=== PATIENT | male | born 1975 | race Caucasian/White ===

== ENCOUNTER → 2024-11-04 | Outpatient (CLI) | payer OTHER, SELFPAY ==
--- NOTE | 2024-11-04 15:17 | RAD_ITS ---
PROCEDURE: LUMBAR SPINE 2 OR 3 VIEWS 11/04/2024 REASON FOR EXAM: PAIN TECHNIQUE: LUMBAR SPINE 2 OR 3 VIEWS COMPARISON: None FINDINGS: Normal lumbar lordosis. There is no substantial scoliosis. T12-L1: Normal disc height. Normal endplates. Normal alignment of the vertebrae. L1-2: Normal disc height. Normal endplates. Normal alignment of the vertebrae. L2-3: Normal disc height. Normal endplates. Normal alignment of the vertebrae. L3-4: Normal disc height. Normal endplates. Normal alignment of the vertebrae. L4-5: Normal disc height. Normal endplates. Normal alignment of the vertebrae. L5-S1: Normal disc height. Normal endplates. Normal alignment of the vertebrae. The soft tissue structures are unremarkable. RAD/Lumbar Spine 2 or 3 Views IMPRESSION: Normal x-ray examination of the lumbar spine. [facility]
== END | disposition home or self-care (01) ==
LOC: MTRAD 15:16
PROVIDERS: PCP Family Medicine; Referring Provider Family Medicine; Visit Provider Family Medicine
DX: M54.16 Radiculopathy, lumbar region (principal)
CPT/HCPCS: 72100

== ENCOUNTER → 2025-01-21 | Outpatient (CLI) | payer OTHER, SELFPAY ==
[2025-01-21 15:06] LABS: Mucous, Urine 0 SEEN /hpf (<or=2+)
--- OUTSIDE RECORDS SUMMARY | 2025-01-21 16:40 | XMS RPT_ITS | CCD ---
Author Organization [facility] Care Team Providers Care Irrigation Teacher Name Role Phone Goran RAY, Dr. Torrey Walters Primary Care Provider Goran RAY, Dr. Torrey Walters Attending Provider [phone] Goran RAY, Dr. Torrey Walters Referring Provider [phone] Torrey Zimmer Referring Unavailable Torrey Zimmer Attending Unavailable Torrey Zimmer Primary Care Unavailable Medications Current Medications Medication Drug Class(es) Dates Sig (Normalized) Sig (Original) acyclovir 800 mg oral tablet (1 source) Herpesvirus Nucleoside Analog DNA Polymerase Inhibitor, Herpes Simplex Virus Nucleoside Analog DNA Polymerase Inhibitor, Herpes Zoster Virus Nucleoside Analog DNA Polymerase Inhibitor Start: 05-24-2014 take 1 tablet by mouth five times daily Acyclovir 800 MG tablet Active 800 mg PO 5 TIMES DAILY 35 0 May 24, 2014 1:00am cephalexin 500 mg oral capsule (1 source) Cephalosporin Antibacterial Start: 05-24-2014 take 1 capsule by mouth every six hours Cephalexin (Keflex) 500 MG capsule Active 500 mg PO EVERY 6 HOURS FOR 7 DAYS 28 0 May 24, 2014 1:00am Problems Problem Classification Problem Date Documented Da te Episodic/Chronic Spondylosis; intervertebral disc disorders; other back problems (1 source) Radiculopathy, lumbar region; Translations: [Radiculopathy, lumbar region] Onset: 11-10-2024 Episodic Results Test Name Value Interpretation Reference Range Facil ity Lumbar Spine 2 or 3 Viewson 11-04-2024 Lumbar Spine 2 or 3 Views [facility] [address] [place] [address] Lumbar Spine 2 or 3 Views MR#: [id number] Acct: [id number] Name: SHELBY SAMPSON Rep #: [id number] : 1975 M 49 From: Luis A galvez MD PCP: Dr. Torrey Zimmer MD Status: REG CLI Study: Lumbar Spine 2 or 3 Views Date of Exam: Exam# [id number] Ordering Dr: Torrey Zimmer MD PROCEDURE: LUMBAR SPINE 2 OR 3 VIEWS 11/04/2024 REASON FOR EXAM: PAIN TECHNIQUE: LUMBAR SPINE 2 OR 3 VIEWS COMPARISON: None FINDINGS: Normal lumbar lordosis. There is no substantial scoliosis. T12-L1: Normal disc height. Normal endplates. Normal alignment of the vertebrae. L1-2: Normal disc height. Normal endplates. Normal alignment of the vertebrae. L2-3: Normal disc height. Normal endplates. Normal alignment of the vertebrae. L3-4: Normal disc height. Normal endplates. Normal alignment of the vertebrae. L4-5: Normal disc height. Normal endplates. Normal alignment of the vertebrae. L5-S1: Normal disc height. Normal endplates. Normal alignment of the vertebrae. The soft tissue structures are unremarkable. RAD/Lumbar Spine 2 or 3 Views IMPRESSION: Normal x-ray examination of the lumbar spine. Reading Location: [place] [address] CC: Dr. 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 Torrey Zimmer MD Work Phone: [facility] [place] Start: 11-04-2024 End: 11-04-[address] Torrey Zimmer MD [facility] [place] Work Phone: Start: 11-04-2024 End: 11-04-2024 ambulatory Torrey Zimmer Facility:[facility] Procedures Date Procedure Procedure Detail Performing Clinician Start: 11-04-2024 X-ray of lumbar spin e, two or three views Dr. Torrey Zimmer MD Work Phone: Payers Date Payer Category Payer Private Health Insurance [id number] 2024 Self-pay Unknown [id number] Unknown [id number] Social History Date Type Detail Facility Start: 05-24-2014 Tobacco smoking status NHIS Tobacco smoking consumption unknown (finding) [facility] Start: 1975 Sex Assigned At Male [facility] Radiology Diagnostic study note 11-05-2024 Note Date & Type Note Facility 11-05-2024 Radiology Diagnostic study note [facility] Imaging Services [address] [place], [place] [address] Lumbar Spine 2 or 3 Views MR#: [id number] Acct: [id number] Name: SHELBY SAMPSON Rep #: [id number] : 1975 M 49 From: Ruddy Gregg MD PCP: Dr. Torrey Zimmer MD Status: RE G CLI Study:Lumbar Spine 2 or 3 Views Date of Exam: 11/04/24 Exam# [id number] Ordering Dr: Torrey Zimmer MD PROCEDURE: LUMBAR SPINE 2 OR 3 VIEWS 11/04/2024 REASON FOR EXAM: PAIN TECHNIQUE: LUMBAR SPINE 2 OR 3 VIEWS COMPARISON: None FINDINGS: Normal lumbar lordosis. There is no substantial scoliosis. T12-L1: Normal disc height. Normal endplates. Normal alignment of the vertebrae. L1-2: Normal disc height. Normal endplates. Normal alignment of the vertebrae. L2-3: Normal disc height. Normal endplates. Normal alignment of the vertebrae. L3-4: Normal disc height. Normal endplates. Normal alignment of the vertebrae. L4-5: Normal disc height. Normal endplates. Normal alignment of the vertebrae. L5-S1: Normal disc height. Normal endplates. Normal alignment of the vertebrae. The soft tissue structures are unremarkable. RAD/Lumbar Spine 2 or 3 Views IMPRESSION: Normal x-ray examination of the lumbar spine. Reading Location: [place] [address] CC: Dr. Torrey Zimmer MD ~ Wedding [employer] Driver: Signed [facility] Evaluation note Note Date & Type Note Facility Evaluation note No assessment information availa ble [facility] Work Phone: Reason for referral (narrative) Note Date & Type Note Facility Reason for referral (narrative) No reason for referral information available [facility] Work Phone: Chief Complaint and Reason for Visit Chief Complaint Admit Date LUMBAR 2-3 VIEWS November 04, 2024 3:09p m Summary Purpose Family History No Family History Records Found Advance Directives No Advanced Directives Records Found Additional Source Comments Care Teams (unrecognized sec tion and content) Team Status: Active Member Role/Relationship Status Dates No Primary Care Physician Family Provider Active Dr. Torrey Zimmer MD Primary Care Provider Active Team Status: Inactive Member Role/Relationship Status Dates Dr. Torrey Zimmer MD Primary Care Provider Active Start: November 04, 2024 End: November 04, 2024 Dr. Torrey Zimmer MD Attending Provider Active Start: November 04, 2024 End: November 04, 2024 Dr. Torrey Zimmer MD Referring Provider Active Start: November 04, 2024 End: November 04, 2024 Goals (unrecognized section and content) Goals may be documented in a n alternate section (unrecognized sect ion and content) No Status Records Found INFORMATION SOURCE (unrecogn ized section and content) DATE CREATED AUTHOR 11/14/2024 [facility] FOR RECORDS PERTAINING TO PATIENTS WHO ARE OR HAVE BEEN ENROLLED IN A CHEMICAL DEPENDENCY/SUBSTANCEABUSE PROGRAM, SOME INFORMATION MAY BE OMITTED. This clinical summary was aggregated from multiple sources. Caution should be exercised in using it in the provision of clinical care. This summary normalizes information from multiple sources, and as a consequence, information in this document may materially change the coding, format and clinical context of patient data. In addition, data may be omitted in some cases. CLINICAL DECISIONS SHOULD BE BASED ON THE PRIMARY CLINICAL RECORDS. [employer] provides no warranty or guarantee of the accuracy or completeness of information in this document.
[2025-01-21 17:50] LABS: Color, Urine Straw (Yellow); Glucose, Dipstick Normal (Normal); Ketone-Dipstick Negative (Negative); Leukocyte Esterase-Dipstick Negative /ul (Negative); Nitrite-Dipstick Negative (Negative); Occult Blood-Urine Negative /ul (Negative); Protein-Dipstick Negative (Negative); Specific Gravity, Urine 1.010 (1.002-1.030); Urine Bilirubin Dipstick Negative (Negative)
[2025-01-21 17:58] LABS: Hematocrit 42.3 % (40-54); Hemoglobin 14.6 g/dL (13.0-16.5); Immature Granulocytes Count 0.000 X10^3/uL (0.0-0.0); Mean Corp Hgb Conc 34.5 g/dL (32-36); Mean Corpuscular Volume 89.1 fL (80-94); Mean Platelet Vol. 9.7 fl (6.2-12.0); NRBC Flagged by Analyzer 0 % (0-5); Platelet Count 244 K/mm3 (150-450); RBC Distribution Width CV 12.4 % (11.6-14.6); RBC Distribution Width SD 40.8 fl (35.1-43.9); Red Blood Count 4.75 M/mm3 (4.6-6.2); White Blood Count 3.9 K/mm3 (4.4-11.0)
[2025-01-21 18:10] LABS: AST(SGOT) 26 U/L (<=37); Alanine Aminotransfer ALT/SGPT 29 U/L (<=46); Albumin, Serum 4.3 g/dL (3.5-5.0); Alkaline Phosphatase 44 U/L (40-129); Anion Gap 13 (5-15); BUN 10 mg/dL (4-19); BUN/Creat Ratio 11.9 RATIO (10-20); Calcium,Total 8.8 mg/dL (7.6-11.0); Carbon Dioxide 25.3 mmol/L (21.0-32.0); Chloride 102 mmol/L (98-108); Cholesterol 258 mg/dL (<=200); Globulin 2.5 g/dL (2.2-4.2); Glucose 89 mg/dL (70-99); Low Density Lipoprotein Calc. 163 mg/dL; Magnesium 2.3 mg/dL (1.5-2.2); PSA,Total - Annual Screen 5.69 ng/mL (0.02-4.00); Potassium 3.8 mmol/L (3.3-5.1); Triglycerides 76 mg/dL; Very Low Density Lipoprotein 15 mg/dL (5-40); cholesterol:hdl ratio screen 3.25
[2025-01-21 18:34] LABS: Red Blood Cells-Urine 0-5 SEEN /hpf (0-5); Squamous Epithelial Cells - UA 0-5 SEEN /hpf (0-5)
== END | disposition home or self-care (01) ==
LOC: MFPLAB 15:03
PROVIDERS: PCP Family Medicine; Visit Provider Family Medicine
DX: Z12.5 Encounter for screening for malignant neoplasm of prostate (principal); I10 Essential (primary) hypertension
CPT/HCPCS: 80053; 80061; 81001; 83735; 84153; 84443; 85025; G0103

== ENCOUNTER → 2025-03-02 | Outpatient (CLI) | payer OTHER, SELFPAY ==
--- NOTE | 2025-03-02 13:13 | MRI_ITS ---
EXAM: PELVIS W/WO CONTRAST 03/02/2025 CLINICAL HISTORY: ELEVATED PROSTATE. TECHNIQUE: Procedure Code: [id number] Modality: MR Procedure: PELVIS W/WO CONTRAST Multiplanar and multisequence images were obtained without and with intravenous gadolinium contrast. CONTRAST: Clariscan VOLUME: 16 mL COMPARISON: None FINDINGS: Image quality:Diagnostic PSA:5.69ng/mL Prostate size: 4.5 x 3 x 5cms Prostate volume: 35.34mL PSA density:5.69 ng/mLï¿½ Prostate Transition zone: PI-RADS 2 findings. Unremarkable signal *T2 score: 1; no abnormality on ADC or high b-value DWI. *DWI score: 1; no abnormality on ADC or high b-value DWI. *DCE: Negative. *Overall PI-RADS: PI-RADS 2. *Extracapsular extension:No gross extracapsular extension. Peripheral Zone: Background changes of likely prostatitis (PI-RADS 2). No additional lesion identified *T2 score: 2; linear or wedge-shaped hypointensity or diffuse mild hypointensity, usually indistinct margin. *DWI score: 2; linear/wedge shaped, hypointensity on ADC and/or hyperintensity on high b-value DWI. *DCE: Negative. *Overall PI-RADS: PI-RADS 2. *Extracapsular extension:No gross extracapsular extension. Neurovascular bundles: Unremarkable. Seminal vesicles: Unremarkable. Bladder: Underdistended and suboptimally evaluated, grossly unremarkable. Lymph nodes: Unremarkable. Bones: No destructive or frankly suspicious bony lesions identified on nondedicated evaluation. Other: None. MRI/Pelvis W/WO Contrast IMPRESSION: Unremarkable appearance of the prostate gland with no suspicious lesion identif ied. Focal linear area of signal hypointensity on the right medial peripheral zone at midgland likely related to prostatitis. Reading Location: [id number]
--- NOTE | 2025-03-02 13:31 | RAD_ITS ---
PROCEDURE: ORBITS FOR FOREIGN BODY 03/02/2025 REASON FOR EXAM: PRE MRI TECHNIQUE: Procedure Code: [id number]. Modality: DX Procedure: ORBITS FOR FOREIGN BODY COMPARISON: None FINDINGS: There is no visible radiopaque foreign body in the region of the orbits. No acute bony abnormality is identified. The visualized paranasal sinuses appear clear. RAD/Orbits for Foreign Body IMPRESSION: There is no visible radiopaque foreign body in the region of the orbits. Reading Location: [place]
== END | disposition home or self-care (01) ==
LOC: OPMRI 13:10
PROVIDERS: PCP Family Medicine; Referring Provider Urology; Visit Provider Urology
DX: Z01.818 Encounter for other preprocedural examination (principal); R97.20 Elevated prostate specific antigen [PSA]
CPT/HCPCS: 70030; 72197; A9575; A4216